=== PATIENT | male | born 1945 | race Caucasian/White ===

== ENCOUNTER 2016-03-23 08:29 | Emergency (ER) | payer MEDICARE, BC ==
--- NOTE | 2016-03-23 09:39 | EDDOCDS ---
Physician Documentation [facility] Name: Leandro Fisher Age: 70 yrs Sex: Male : 1945 Arrival Date: 03/23/2016 Time: 08:29 Bed Triage 2 Private MD: Vahe Amato MD Disposition: 03/23/16 09:19 Discharged to Home/Self Care. Impression: Pain in left knee. - Condition is Stable. - Discharge Instructions: Knee Bracing, Knee Pain. - Prescriptions for Ultram 50 mg Oral Tablet - take 1 tablet by ORAL route every 6 hours As needed MDD: 4 tabs; 20 tablet. - Medication Reconciliation, Local Pharmacy Hours form. - Follow up: Orthopaedics, [facility]; When: Call to arrange an appointment; Reason: Further diagnostic work-up, Recheck today's complaints, Continuance of care. - Problem is new. - Symptoms are unchanged. Historical: - Allergies: SULFA (SULFONAMIDES); - Home Meds: 1. Flomax 0.4 mg Oral cp24 2 caps once daily 2. lisinopril 10 mg Oral tab 1 tab once daily - PMHx: BPH; Hypertension; - PSHx: Cholecystectomy; knee Surgery; - Social history: Smoking status: Patient states was never smoker of tobacco. No barriers to communication noted, The patient speaks fluent Albanian, Speaks appropriately for age. - Family history: Not pertinent. - : The pt / caregiver states he / she is not on anticoagulants. Home medication list is obtained from the patient. - Exposure Risk Screening:: None identified. Vital Signs: 03/23 08:42 BP 135 / 65; Pulse 55; Resp 18; Temp 98.3(O); Pulse Ox 95% on R/A; Weight 108.86 kg / ck1 240 lbs (R); Height 6 ft. 0 in. (182.88 cm) (R); Pain 9/10; 08:42 Body Mass Index 32.55 (108.86 kg, 182.88 cm) ck1 MDM: 09:14 Financial registration complete. lg 09:19 Knee Immobilizer ordered. btw 09:19 Crutches ordered. btw Signatures: Peterson Cid RN RN Severino Leon, Nash Reg Tiny Johnson RN RN ck1 Erich Alfred VIANEY PA btw MTDD
--- NOTE | 2016-03-23 09:39 | EDDOCDS ---
Nurse's Notes [facility] Name: Leandro Fisher Age: 70 yrs Sex: Male : 1945 Arrival Date: 03/23/2016 Time: 08:29 Bed Triage 2 Private MD: Vahe Amato MD Diagnosis: Pain in left knee Presentation: 03/23 08:41 Presenting complaint: Patient states: "Stabbing, snap" to left knee after rolling over ck1 in bed this morning. Adult Sepsis Screening: The patient does not have new or worsening altered mentation. Patient's respiratory rate is less than 22. Systolic blood pressure is greater than 100. Patient has a qSOFA score of 0- Negative Sepsis Screen. Suicide/Homicide risk assessment- the patient denies having any suicidal and/or homicidal ideations and does not present with any other emotional, behavioral or mental health complaints. 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 Transition of care: patient was not received from another setting of care. 08:41 Acuity: TAYLOR Level 4 ck1 08:41 Method Of Arrival: Wheelchair ck1 Triage Assessment: 08:45 General: Appears in no apparent distress, comfortable, Behavior is appropriate for age, ck1 cooperative. Pain: Location: left knee Pain At worst was 10 out of 10 on a pain scale. Aggravated by increased activity, repositioning, weight bearing. Derm: Skin is intact, is healthy with good turgor, Skin is pink, warm & dry. Musculoskeletal: Circulation, motion, and sensation intact Range of motion limited in left knee. Historical: - Allergies: SULFA (SULFONAMIDES); - Home Meds: 1. Flomax 0.4 mg Oral cp24 2 caps once daily 2. lisinopril 10 mg Oral tab 1 tab once daily - PMHx: BPH; Hypertension; - PSHx: Cholecystectomy; knee Surgery; - Social history: Smoking status: Patient states was never smoker of tobacco. No barriers to communication noted, The patient speaks fluent Macedonian, Speaks appropriately for age. - Family history: Not pertinent. - : The pt / caregiver states he / she is not on anticoagulants. Home medication list is obtained from the patient. - Exposure Risk Screening:: None identified. Screenin:38 Abuse/DV Screen: The patient / caregiver reports he/she is: not in a situation that jmk causes fear, pain or injury. Assessment: 09:36 General: Appears knee immobilizer fitted and dispensed. familiar with crutch walking jmk gait. receptive to discharge. Vital Signs: 08:42 BP 135 / 65; Pulse 55; Resp 18; Temp 98.3(O); Pulse Ox 95% on R/A; Weight 108.86 kg ck1 (R); Height 6 ft. 0 in. (182.88 cm) (R); Pain 9/10; 08:42 Body Mass Index 32.55 (108.86 kg, 182.88 cm) ck1 Vitals: 08:42 Log In Time: March 23, 2016 at 08:27. ck1 ED Course: 08:30 Patient visited by Severino Balderas Reg. lg 08:30 Vahe Amato is Private Physician. lg 08:30 Patient moved to Waiting lg 08:40 Patient moved to Triage 2 ck1 08:42 Triage Initiated ck1 08:58 [facility]rich Alfred [facility]. btw 08:58 Andres Chin MD is Attending Physician. btw 08:58 Patient visited by Erich Alfred PA. btw 09[facility] btw 09:36 The patient / caregiver is instructed regarding the plan of care and ED course. jmk 09:36 No IV's were initiated during this patient's visit. No procedures done that require jmk assistance. Order Results: There are currently no results for this order. Outcome: 09:19 Discharge ordered by Provider. btw 09:36 Discharge Assessment: Patient awake, alert and oriented x 3. No cognitive and/or jmk functional deficits noted. Patient verbalized understanding of disposition instructions. patient administered narcotics - no. The following High Risk Discharge criteria are identified: None. Condition: good. Discharge instructions given to patient, Instructed on discharge instructions, follow up and referral plans. medication usage, Demonstrated understanding of instructions, medications, Pt was receptive of discharge instructions/ teaching. No special radiology studies were completed. Property :Personal belongings accompany Pt. 09:38 Patient left the ED. k Signatures: Peterson Cid RN RN Severino Marquez, Reg Reg lg Tiny Kaur RN RN ck1 Erich Alfred PA PA btw MIKED
--- NOTE | 2016-03-25 10:39 | EDDOCDS ---
Nurse's Notes [facility] Name: Leandro Fisher Age: 70 yrs Sex: Male : 1945 Arrival Date: 03/23/2016 Time: 08:29 Bed Triage 2 Private MD: Vahe Amato MD Diagnosis: Pain in left knee Presentation: 03/23 08:41 Presenting complaint: Patient states: "Stabbing, snap" to left knee after rolling over ck1 in bed this morning. Adult Sepsis Screening: The patient does not have new or worsening altered mentation. Patient's respiratory rate is less than 22. Systolic blood pressure is greater than 100. Patient has a qSOFA score of 0- Negative Sepsis Screen. Suicide/Homicide risk assessment- the patient denies having any suicidal and/or homicidal ideations and does not present with any other emotional, behavioral or mental health complaints. 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 Transition of care: patient was not received from another setting of care. 08:41 Acuity: TAYLOR Level 4 ck1 08:41 Method Of Arrival: Wheelchair ck1 Triage Assessment: 08:45 General: Appears in no apparent distress, comfortable, Behavior is appropriate for age, ck1 cooperative. Pain: Location: left knee Pain At worst was 10 out of 10 on a pain scale. Aggravated by increased activity, repositioning, weight bearing. Derm: Skin is intact, is healthy with good turgor, Skin is pink, warm & dry. Musculoskeletal: Circulation, motion, and sensation intact Range of motion limited in left knee. Historical: - Allergies: SULFA (SULFONAMIDES); - Home Meds: 1. Flomax 0.4 mg Oral cp24 2 caps once daily 2. lisinopril 10 mg Oral tab 1 tab once daily - PMHx: BPH; Hypertension; - PSHx: Cholecystectomy; knee Surgery; - Social history: Smoking status: Patient states was never smoker of tobacco. No barriers to communication noted, The patient speaks fluent Sami, Speaks appropriately for age. - Family history: Not pertinent. - : The pt / caregiver states he / she is not on anticoagulants. Home medication list is obtained from the patient. - Exposure Risk Screening:: None identified. Screenin:38 Abuse/DV Screen: The patient / caregiver reports he/she is: not in a situation that jmk causes fear, pain or injury. Assessment: 09:36 General: Appears knee immobilizer fitted and dispensed. familiar with crutch walking jmk gait. receptive to discharge. Vital Signs: 08:42 BP 135 / 65; Pulse 55; Resp 18; Temp 98.3(O); Pulse Ox 95% on R/A; Weight 108.86 kg ck1 (R); Height 6 ft. 0 in. (182.88 cm) (R); Pain 9/10; 08:42 Body Mass Index 32.55 (108.86 kg, 182.88 cm) ck1 Vitals: 08:42 Log In Time: March 23, 2016 at 08:27. ck1 ED Course: 08:30 Patient visited by Severino Balderas Reg. lg 08:30 Vahe Amato is Private Physician. lg 08:30 Patient moved to Waiting lg 08:40 Patient moved to Triage 2 ck1 08:42 Triage Initiated ck1 08:58 Erich Alfred [facility] btw 08:58 Andres Chin MD is Attending Physician. btw 08:58 Patient visited by Erich Alfred PA. btw 09:[facility] btw 09:36 The patient / caregiver is instructed regarding the plan of care and ED course. jmk 09:36 No IV's were initiated during this patient's visit. No procedures done that require jmk assistance. 10:31 [facility] Payment Agreement was scanned into [employer] and attached to record. lg 15:36 T-Sheet-- Draft Copy was scanned into [employer] and attached to record. gb Order Results: There are currently no results for this order. Outcome: 09:19 Discharge ordered by Provider. btw 09:36 Discharge Assessment: Patient awake, alert and oriented x 3. No cognitive and/or jmk functional deficits noted. Patient verbalized understanding of disposition instructions. patient administered narcotics - no. The following High Risk Discharge criteria are identified: None. Condition: good. Discharge instructions given to patient, Instructed on discharge instructions, follow up and referral plans. medication usage, Demonstrated understanding of instructions, medications, Pt was receptive of discharge instructions/ teaching. No special radiology studies were completed. Property :Personal belongings accompany Pt. 09:38 Patient left the ED. jmk Signatures: Peterson Cid,RN RN jobyk Andra Stoddard, Reg Reg gb Severino Balderas, Reg Reg lg Tiny KaurRN RN ck1 Erich Alfred PA PA btw Chart Complete MTDD
--- NOTE | 2016-03-25 10:39 | EDDOCDS ---
Physician Documentation [facility] Name: Leandro Fisher Age: 70 yrs Sex: Male : 1945 Arrival Date: 03/23/2016 Time: 08:29 Bed Triage 2 Private MD: Vahe Amato MD Disposition: 03/23/16 09:19 Discharged to Home/Self Care. Impression: Pain in left knee. - Condition is Stable. - Discharge Instructions: Knee Bracing, Knee Pain. - Prescriptions for Ultram 50 mg Oral Tablet - take 1 tablet by ORAL route every 6 hours As needed MDD: 4 tabs; 20 tablet. - Medication Reconciliation, Local Pharmacy Hours form. - Follow up: Orthopaedics, [facility]; When: Call to arrange an appointment; Reason: Further diagnostic work-up, Recheck today's complaints, Continuance of care. - Problem is new. - Symptoms are unchanged. Historical: - Allergies: SULFA (SULFONAMIDES); - Home Meds: 1. Flomax 0.4 mg Oral cp24 2 caps once daily 2. lisinopril 10 mg Oral tab 1 tab once daily - PMHx: BPH; Hypertension; - PSHx: Cholecystectomy; knee Surgery; - Social history: Smoking status: Patient states was never smoker of tobacco. No barriers to communication noted, The patient speaks fluent Belarusian, Speaks appropriately for age. - Family history: Not pertinent. - : The pt / caregiver states he / she is not on anticoagulants. Home medication list is obtained from the patient. - Exposure Risk Screening:: None identified. Vital Signs: 03/23 08:42 BP 135 / 65; Pulse 55; Resp 18; Temp 98.3(O); Pulse Ox 95% on R/A; Weight 108.86 kg / ck1 240 lbs (R); Height 6 ft. 0 in. (182.88 cm) (R); Pain 9/10; 08:42 Body Mass Index 32.55 (108.86 kg, 182.88 cm) ck1 MDM: 09:14 Financial registration complete. lg 09:19 Knee Immobilizer ordered. btw 09:19 Crutches ordered. btw 10:31 [facility] [place] was scanned into [employer] and attached to record. lg 15:36 T-Sheet-- Draft Copy was scanned into [employer] and attached to record. gb Signatures: Peterson Cid,RN RN jmk Andra Stoddard, Reg Reg gb Severino Balderas, Reg Reg lg Tiny KaurRN RN ck1 Erich Alfred PA PA btw The chart was reviewed and I authenticate all verbal orders and agree with the evaluation and treatment provided.Attachments: 10:31 [facility] Payment Agreement lg 15:36 T-Sheet-- Draft Copy gb Chart Complete MTDD
--- NOTE | 2016-03-25 10:39 | EDDOCDS ---
Physician Documentation [facility] Name: Leandro Fisher Age: 70 yrs Sex: Male : 1945 Arrival Date: 03/23/2016 Time: 08:29 Bed Triage 2 Private MD: Vahe Amato MD Disposition: 03/23/16 09:19 Discharged to Home/Self Care. Impression: Pain in left knee. - Condition is Stable. - Discharge Instructions: Knee Bracing, Knee Pain. - Prescriptions for Ultram 50 mg Oral Tablet - take 1 tablet by ORAL route every 6 hours As needed MDD: 4 tabs; 20 tablet. - Medication Reconciliation, Local Pharmacy Hours form. - Follow up: Orthopaedics, [facility]; When: Call to arrange an appointment; Reason: Further diagnostic work-up, Recheck today's complaints, Continuance of care. - Problem is new. - Symptoms are unchanged. Historical: - Allergies: SULFA (SULFONAMIDES); - Home Meds: 1. Flomax 0.4 mg Oral cp24 2 caps once daily 2. lisinopril 10 mg Oral tab 1 tab once daily - PMHx: BPH; Hypertension; - PSHx: Cholecystectomy; knee Surgery; - Social history: Smoking status: Patient states was never smoker of tobacco. No barriers to communication noted, The patient speaks fluent Maldivian, Speaks appropriately for age. - Family history: Not pertinent. - : The pt / caregiver states he / she is not on anticoagulants. Home medication list is obtained from the patient. - Exposure Risk Screening:: None identified. Vital Signs: 03/23 08:42 BP 135 / 65; Pulse 55; Resp 18; Temp 98.3(O); Pulse Ox 95% on R/A; Weight 108.86 kg / ck1 240 lbs (R); Height 6 ft. 0 in. (182.88 cm) (R); Pain 9/10; 08:42 Body Mass Index 32.55 (108.86 kg, 182.88 cm) ck1 MDM: 09:14 Financial registration complete. lg 09:19 Knee Immobilizer ordered. btw 09:19 Crutches ordered. btw 10:31 [facility] Payment Agreement was scanned into [employer] and attached to record. lg 15:36 T-Sheet-- Draft Copy was scanned into [employer] and attached to record. gb Signatures: Peterson Cid,RN RN jmk Andra Stoddard, Reg Reg gb Severino Balderas, Reg Reg lg Tiny KaurRN RN ck1 Erich Alfred PA PA btw The chart was reviewed and I authenticate all verbal orders and agree with the evaluation and treatment provided.Attachments: 10:31 [facility] Payment Agreement lg 15:36 T-Sheet-- Draft Copy gb Chart Complete MTDD
== END 2016-03-23 09:38 | disposition home or self-care (01) ==
LOC: M ED 08:29
DX: M25.562 Pain in left knee (principal); N40.0 Benign prostatic hyperplasia without lower urinary tract symptoms; I10 Essential (primary) hypertension; Z79.899 Other long term (current) drug therapy; Z88.2 Allergy status to sulfonamides

== ENCOUNTER → 2016-07-11 | Outpatient (REF) | payer MEDICARE, BC | LOC: M SMT 12:46 | PROVIDERS: ATTEND Nurse Practitioner Women's Health | DX: R30.0 Dysuria (principal) ==

== ENCOUNTER → 2016-08-01 | Outpatient (REF) | payer MEDICARE, BC ==
[~2016-08-01] MED LIST: LISI10TA4; TAMSULOSIN PO; [UNRECOGNIZED DRUG - OTHER] PO
== END ==
LOC: M SFHCPLAZ 13:40
PROVIDERS: ATTEND Physician Assistant
DX: Z72.51 High risk heterosexual behavior (principal); R35.0 Frequency of micturition; I10 Essential (primary) hypertension; E78.4 Other hyperlipidemia; Z79.82 Long term (current) use of aspirin; Z79.899 Other long term (current) drug therapy
CPT/HCPCS: 36415; 81001; 86705; 86709; 86780; 86803; 87086; 87340; 87491; 87591; 87899; G0463

== ENCOUNTER → 2016-08-17 | Outpatient (REF) | payer MEDICARE, BC | LOC: M LAB REF 13:17 | PROVIDERS: ATTEND Nurse Practitioner Women's Health | DX: Z72.51 High risk heterosexual behavior (principal) ==

== ENCOUNTER → 2016-10-05 | Outpatient (REF) | payer MEDICARE, BC | LOC: M SMT 13:43 | PROVIDERS: ATTEND Urology | DX: Z87.440 Personal history of urinary (tract) infections (principal); Z79.899 Other long term (current) drug therapy ==

== ENCOUNTER 2016-11-02 18:06 | Emergency (ER) | payer MEDICARE, BC ==
[~2016-11-02] VITALS: Ht 182.9 cm; Wt 109.1 kg
[2016-11-02 18:07] VITALS: BP 165/74
[2016-11-02] MEDS ORDERED: [UNRECOGNIZED DRUG - OTHER] PO (18:23)
[2016-11-02] MEDS ORDERED: LISI10TA4 (18:23)
[2016-11-02] MEDS ORDERED: TAMSULOSIN PO (18:23)
== END 2016-11-02 19:50 | disposition left against medical advice (07) ==
LOC: M ED 18:06
DX: R10.32 Left lower quadrant pain (principal); Z53.29 Procedure and treatment not carried out because of patient's decision for other reasons

== ENCOUNTER → 2017-01-27 | Outpatient (CLI) | payer MEDICARE, BC | LOC: M SMT 10:13 | PROVIDERS: ATTEND Nurse Practitioner Women's Health | DX: Z12.5 Encounter for screening for malignant neoplasm of prostate (principal) | CPT/HCPCS: 36415; G0103 ==

== ENCOUNTER → 2017-03-02 | Outpatient (REF) | payer MEDICARE, BC ==
[2017-03-02 12:45] LABS: ALBUMIN/GLOBULIN RATIO 1.38 (1.00-1.93); ALKALINE PHOSPHATASE 66 U/L (45-117); ALT/SGPT 25 U/L (12-78); ANION GAP 8 MEQ/L (8-16); AST/SGOT 18 U/L (7-37); BILIRUBIN,TOTAL 0.3 MG/DL (0.2-1.0); BLOOD UREA NITROGEN 19 MG/DL (7-18); CARBON DIOXIDE LEVEL 27 MEQ/L (21-32); CHLORIDE LEVEL 107 MEQ/L (98-107); CHOLESTEROL LEVEL 191 MG/DL (<200); CHOLESTEROL RISK RATIO 4.244 (<5); GLOMERULAR FILTRATION RATE > 60.0 (>49); GLUCOSE, FASTING 116 MG/DL (80-110); HDL CHOLESTEROL 45 MG/DL (>40); LDL CHOLESTEROL 128.8 MG/DL (<100); NON-HDL-C 146 MG/DL; POTASSIUM SERUM 5.1 MEQ/L (3.5-5.1); SODIUM LEVEL 142 MEQ/L (136-145); TOTAL PROTEIN 6.9 GM/DL (6.4-8.2); TRIGLYCERIDES LEVEL 86 MG/DL (<150)
[2017-03-02 13:09] LABS: MALB URINE SIEMENS < 5.0 MG/L; MAU/CREAT RATIO 4.7 MCG/MG (0.0-30.0)
== END ==
LOC: M SFHCPLAZ 09:16
DX: E78.4 Other hyperlipidemia (principal); I10 Essential (primary) hypertension
CPT/HCPCS: 80053

== ENCOUNTER → 2018-01-26 | Outpatient (CLI) | payer MEDICARE, BC | LOC: M SMT 10:17 | PROVIDERS: ATTEND Nurse Practitioner Women's Health | DX: Z12.5 Encounter for screening for malignant neoplasm of prostate (principal) | CPT/HCPCS: 36415; G0103; G0463 ==

== ENCOUNTER → 2019-02-01 | Outpatient (CLI) | payer MEDICARE, BC | LOC: M PLALAB 09:00 | PROVIDERS: ATTEND Nurse Practitioner Women's Health | DX: Z12.5 Encounter for screening for malignant neoplasm of prostate (principal) | CPT/HCPCS: 36415; G0103; G0463 ==

== ENCOUNTER → 2019-07-26 | Outpatient (REF) | payer MEDICARE, BC ==
[~2019-07-26] MED LIST changes: +LISI10TA22; -LISI10TA4
[2019-07-26 18:26] LABS: ALBUMIN 3.9 GM/DL (3.2-5.2); ALT/SGPT 32 U/L (12-78); BILIRUBIN,TOTAL 0.3 MG/DL (0.2-1.0); BLOOD UREA NITROGEN 13 MG/DL (7-18); CALCIUM LEVEL 8.8 MG/DL (8.8-10.2); CARBON DIOXIDE LEVEL 27 MEQ/L (21-32); CHLORIDE LEVEL 107 MEQ/L (98-107); CHOLESTEROL LEVEL 193 MG/DL (<200); CHOLESTEROL RISK RATIO 4.707 (<5); CREATININE FOR GFR 1.17 MG/DL (0.70-1.30); GLOMERULAR FILTRATION RATE > 60.0 (>42); GLUCOSE, FASTING 69 MG/DL (70-100); HDL CHOLESTEROL 41 MG/DL (>40); LDL CHOLESTEROL 134 MG/DL (<100); NON-HDL-C 152 MG/DL; POTASSIUM SERUM 4.3 MEQ/L (3.5-5.1); SODIUM LEVEL 140 MEQ/L (136-145); TRIGLYCERIDES LEVEL 91 MG/DL (<150)
== END ==
LOC: M SFHCADAM 16:14
PROVIDERS: ATTEND Family Medicine
DX: I10 Essential (primary) hypertension (principal); E78.49 Other hyperlipidemia
CPT/HCPCS: 80053; 80061; G0463

== ENCOUNTER → 2020-06-11 | Outpatient (REF) | payer MEDICARE, BC | LOC: M PLALAB 10:29 | PROVIDERS: ATTEND Nurse Practitioner Women's Health | DX: Z12.5 Encounter for screening for malignant neoplasm of prostate (principal) | CPT/HCPCS: 36415; G0103 ==

== ENCOUNTER → 2021-06-10 | Outpatient (CLI) | payer MEDICARE, BC | LOC: M PLALAB 09:34 | PROVIDERS: ATTEND Nurse Practitioner Women's Health | DX: Z12.5 Encounter for screening for malignant neoplasm of prostate (principal) ==

== ENCOUNTER → 2021-08-04 | Outpatient (REF) | payer MEDICARE, BC ==
[2021-08-04 16:56] LABS: HEMATOCRIT 46.4 % (42.0-52.0); HEMOGLOBIN 15.4 g/dl (13.5-17.5); MEAN CORPUSCULAR HGB CONC 33.2 g/dl (32.0-36.5); MEAN CORPUSCULAR VOLUME 90.3 fl (80.0-96.0); PLATELET COUNT, AUTOMATED 211 10^3/uL (150-450); RED BLOOD COUNT 5.14 10^6/uL (4.30-6.10); WHITE BLOOD COUNT 6.9 10^3/uL (4.0-10.0)
[2021-08-04 17:29] LABS: ALBUMIN 3.9 GM/DL (3.2-5.2); ALT/SGPT 28 U/L (12-78); BILIRUBIN,TOTAL 0.6 MG/DL (0.2-1.0); BLOOD UREA NITROGEN 15 MG/DL (7-18); CALCIUM LEVEL 9.2 MG/DL (8.8-10.2); CARBON DIOXIDE LEVEL 25 MEQ/L (21-32); CHLORIDE LEVEL 109 MEQ/L (98-107); CHOLESTEROL LEVEL 180 MG/DL (<200); CHOLESTEROL RISK RATIO 4.864 (<5); FREE T4 0.99 NG/DL (0.76-1.46); GLOMERULAR FILTRATION RATE > 60.0 (>42); GLUCOSE, FASTING 94 MG/DL (70-100); HDL CHOLESTEROL 37 MG/DL (>40); LDL CHOLESTEROL 121 MG/DL (<100); NON-HDL-C 143 MG/DL; POTASSIUM SERUM 4.4 MEQ/L (3.5-5.1); SODIUM LEVEL 141 MEQ/L (136-145); TRIGLYCERIDES LEVEL 112 MG/DL (<150)
== END ==
LOC: M SFHCADAM 13:52
PROVIDERS: ATTEND Family Medicine
DX: I10 Essential (primary) hypertension (principal); E78.49 Other hyperlipidemia; R73.03 Prediabetes

== ENCOUNTER 2022-06-09 08:21 | Day surgery (SDC) | payer MEDICARE, BC ==
[~2022-06-09] VITALS: Ht 182.9 cm; Wt 113.4 kg
[~2022-06-09 08:21] MED LIST changes: +FLOM0.4C39 PO; -LISI10TA22; +LISI10TA22 PO; +NS 1,000 ML IV ONE
[2022-06-09] MEDS ORDERED: propofoL 500 MG/50 ML VIAL As Ordered ONE (10:10)
[2022-06-09] MEDS ORDERED: LIDOCAINE 2% 100MG/5ML SDV (FOR ANES.) As Ordered ONE (10:10)
[2022-06-09 10:55] VITALS: BP 120/70
== END 2022-06-09 11:05 | disposition home or self-care (01) ==
LOC: M OPP 08:21
PROVIDERS: ATTEND Internal Medicine Gastroenterology
DX: Z12.11 Encounter for screening for malignant neoplasm of colon (principal); Z86.010 Personal history of colon polyps; D12.0 Benign neoplasm of cecum; K63.5 Polyp of colon; K64.8 Other hemorrhoids; K57.30 Diverticulosis of large intestine without perforation or abscess without bleeding; I10 Essential (primary) hypertension; N40.0 Benign prostatic hyperplasia without lower urinary tract symptoms; Z79.899 Other long term (current) drug therapy; Z88.2 Allergy status to sulfonamides

== ENCOUNTER → 2022-06-10 | Outpatient (CLI) | payer MEDICARE, BC ==
[~2022-06-10] MED LIST changes: -NS 1,000 ML IV ONE
== END ==
LOC: M PLALAB 10:18
PROVIDERS: ATTEND Physician Assistant
DX: Z12.5 Encounter for screening for malignant neoplasm of prostate (principal)

== ENCOUNTER → 2022-08-10 | Outpatient (REF) | payer MEDICARE, BC ==
[2022-08-10 16:21] LABS: HEMATOCRIT 46.7 % (42.0-52.0); HEMOGLOBIN 15.4 g/dl (13.5-17.5); PLATELET COUNT, AUTOMATED 224 10^3/uL (150-450); RED BLOOD COUNT 5.13 10^6/uL (4.30-6.10); WHITE BLOOD COUNT 6.5 10^3/uL (4.0-10.0)
[2022-08-10 16:34] LABS: ALBUMIN 4.2 G/DL (3.2-5.2); ALKALINE PHOSPHATASE 69 U/L (46-116); ALT/SGPT 30 U/L (7.0-40); AST/SGOT 14 U/L (<34); BILIRUBIN,TOTAL 0.5 MG/DL (0.3-1.2); BLOOD UREA NITROGEN 14 MG/DL (9-23); CALCIUM LEVEL 9.7 MG/DL (8.3-10.6); CARBON DIOXIDE LEVEL 28 MMOL/L (20-31); CHLORIDE LEVEL 104 MMOL/L (98-107); CHOLESTEROL LEVEL 176 MG/DL (<200); CHOLESTEROL RISK RATIO 4.59 (<5); GLOMERULAR FILTRATION RATE > 60.0 (>42); GLUCOSE, FASTING 74 MG/DL (74-106); HDL CHOLESTEROL 38.3 MG/DL (>40); LDL CHOLESTEROL 118.3 MG/DL (<100); NON-HDL-C 137.7 MG/DL; POTASSIUM SERUM 4.5 MMOL/L (3.5-5.1); SODIUM LEVEL 138 MMOL/L (136-145); TOTAL PROTEIN 6.9 G/DL (5.7-8.2); TRIGLYCERIDES LEVEL 97 MG/DL (<150)
[2022-08-10 16:49] LABS: HEMOGLOBIN A1c 5.9 % (4.0-6.0)
== END ==
LOC: M SFHCADAM 13:58
PROVIDERS: ATTEND Family Medicine
DX: I10 Essential (primary) hypertension (principal); E78.2 Mixed hyperlipidemia; R73.03 Prediabetes

== ENCOUNTER → 2023-06-19 | Outpatient (REF) | payer MEDICARE, BC | LOC: M SFHCADAM 08:52 | PROVIDERS: ATTEND Physician Assistant | DX: Z12.5 Encounter for screening for malignant neoplasm of prostate (principal) ==

== ENCOUNTER → 2023-08-16 | Outpatient (REF) | payer MEDICARE, BC ==
[2023-08-16 19:20] LABS: HEMATOCRIT 46.3 % (42.0-52.0); HEMOGLOBIN 15.4 g/dl (13.5-17.5); MEAN CORPUSCULAR HEMOGLOBIN 30.1 pg (27.0-33.0); MEAN CORPUSCULAR HGB CONC 33.3 g/dl (32.0-36.5); MEAN CORPUSCULAR VOLUME 90.6 fl (80.0-96.0); PLATELET COUNT, AUTOMATED 259 10^3/uL (150-450); RED BLOOD COUNT 5.11 10^6/uL (4.30-6.10); WHITE BLOOD COUNT 7.4 10^3/uL (4.0-10.0)
[2023-08-16 19:50] LABS: ALBUMIN 3.8 G/DL (3.2-5.2); ALKALINE PHOSPHATASE 67 U/L (46-116); ALT/SGPT 25 U/L (7.0-40); AST/SGOT 12 U/L (<34); BILIRUBIN,TOTAL 0.5 MG/DL (0.3-1.2); BLOOD UREA NITROGEN 12 MG/DL (9-23); CALCIUM LEVEL 9.1 MG/DL (8.3-10.6); CARBON DIOXIDE LEVEL 28 MMOL/L (20-31); CHLORIDE LEVEL 108 MMOL/L (98-107); CHOLESTEROL LEVEL 168 MG/DL (<200); CHOLESTEROL RISK RATIO 4.85 (<5); FREE T4 1.05 NG/DL (0.89-1.76); GLOMERULAR FILTRATION RATE > 60.0 (>42); GLUCOSE, FASTING 109 MG/DL (74-106); HDL CHOLESTEROL 34.6 MG/DL (>40); LDL CHOLESTEROL 104.6 MG/DL (<100); NON-HDL-C 133.4 MG/DL; POTASSIUM SERUM 4.3 MMOL/L (3.5-5.1); SODIUM LEVEL 142 MMOL/L (136-145); THYROID STIMULATING HORMONE 1.707 uIU/ML (0.55-4.78); TOTAL PROTEIN 6.6 G/DL (5.7-8.2); TRIGLYCERIDES LEVEL 144 MG/DL (<150)
[2023-08-16 19:58] LABS: HEMOGLOBIN A1c 5.8 % (4.0-6.0)
== END ==
LOC: M SFHCADAM 14:12
PROVIDERS: ATTEND Family Medicine
DX: E78.2 Mixed hyperlipidemia (principal); R73.03 Prediabetes; I10 Essential (primary) hypertension

== ENCOUNTER 2024-04-06 18:24 | Emergency (ER) | payer MEDICARE, BC ==
[~2024-04-06] VITALS: Ht 185.4 cm; Wt 113.4 kg
[2024-04-06] MEDS: MORPHINE 4 MG/ML 1ML VIAL IV ONE (19:38)
[2024-04-06 20:51] VITALS: BP 125/62; TEMP 98.4; O2SAT 96
== END 2024-04-06 20:54 | disposition home or self-care (01) ==
LOC: EDBD 18:24 → M ED 18:24
DX: S43.004A Unspecified dislocation of right shoulder joint, initial encounter (principal); W00.0XXA Fall on same level due to ice and snow, initial encounter; Y92.009 Unspecified place in unspecified non-institutional (private) residence as the place of occurrence of the external cause; Y93.89 Activity, other specified; Y99.9 Unspecified external cause status; I10 Essential (primary) hypertension; Z79.899 Other long term (current) drug therapy; Z88.2 Allergy status to sulfonamides

== ENCOUNTER → 2024-04-10 | Outpatient (CLI) | payer MEDICARE, BC | LOC: M SOG 08:27 | PROVIDERS: ATTEND Neuromusculoskeletal Medicine, Sports Medicine | DX: M25.511 Pain in right shoulder (principal) ==

== ENCOUNTER → 2024-04-17 | Outpatient (CLI) | payer MEDICARE, BC | LOC: M RAD 07:18 | PROVIDERS: ATTEND Neuromusculoskeletal Medicine, Sports Medicine | DX: M75.101 Unspecified rotator cuff tear or rupture of right shoulder, not specified as traumatic (principal); M25.311 Other instability, right shoulder ==

== ENCOUNTER → 2024-05-20 | Outpatient (RCR) | payer MEDICARE, BC | LOC: M PT 04-23 09:07 | PROVIDERS: ATTEND Neuromusculoskeletal Medicine, Sports Medicine | DX: M25.311 Other instability, right shoulder (principal) ==

== ENCOUNTER 2024-06-14 08:26 | Outpatient (RCR) | payer MEDICARE, BC ==
[~2024-06-14 08:26] MED LIST changes: -FLOM0.4C39 PO; +TAMS-18 PO
== END 2024-06-19 ==
LOC: M PT 08:26
PROVIDERS: ATTEND Neuromusculoskeletal Medicine, Sports Medicine
DX: M25.511 Pain in right shoulder (principal)

== ENCOUNTER → 2024-06-25 | Outpatient (CLI) | payer MEDICARE, BC | LOC: M PLALAB 10:21 | PROVIDERS: ATTEND Physician Assistant | DX: Z12.5 Encounter for screening for malignant neoplasm of prostate (principal) ==